=== PATIENT | male | born 1965 | race American Indian/Alaskan Native ===

== ENCOUNTER 2019-02-05 09:47 | Outpatient (CLI) | payer OTHER ==
--- NOTE | 2019-02-05 10:57 | XRay Report ---
ROUTINE CHEST, TWO VIEWS: HISTORY: Acute embolism and thrombosis of unspecified deep veins. The trachea, heart, mediastinal contour, lung patterson and bony thorax are unremarkable. IMPRESSION: Unremarkable chest x-ray.
== END 2019-02-05 09:48 | disposition home or self-care (01) ==
LOC: CARD 09:47
PROVIDERS: ATTEND Surgery
DX: I82.409 Acute embolism and thrombosis of unspecified deep veins of unspecified lower extremity (principal); I49.9 Cardiac arrhythmia, unspecified; R94.31 Abnormal electrocardiogram [ECG] [EKG]; Z91.013 Allergy to seafood
CPT/HCPCS: 71046; 93005; 93010